=== PATIENT | female | born 1975 | race Caucasian/White ===

== ENCOUNTER → 2016-10-30 | Outpatient (CLI) | payer OTHER ==
[~2016-10-30] MED LIST: PRENTAB26 PO
[2016-10-30 10:46] LABS: PROGESTERONE < 0.21 ng/mL
== END | disposition home or self-care (01) ==
LOC: C.LAB1850 09:20
PROVIDERS: ATTEND Specialist
DX: Z31.89 Encounter for other procreative management (principal)

== ENCOUNTER → 2016-11-12 | Outpatient (CLI) | payer OTHER ==
[2016-11-12 08:50] LABS: PROGESTERONE < 0.21 ng/mL
== END | disposition home or self-care (01) ==
LOC: C.LAB1850 07:34
PROVIDERS: ATTEND Specialist
DX: Z31.89 Encounter for other procreative management (principal)

== ENCOUNTER → 2016-11-19 | Outpatient (CLI) | payer OTHER ==
[2016-11-19 11:01] LABS: URINE APPEARANCE CLEAR (CLEAR); URINE BILIRUBIN NEG (NEG); URINE COLOR YELLOW; URINE NITRITE POS (NEG); URINE SPECIFIC GRAVITY 1.021 (1.000-1.030); UROBILINOGEN NEG (NEG)
[2016-11-19 11:04] LABS: MANUAL MICROSCOPIC REQUIRED? NO; REVIEW REQ? NO
== END | disposition home or self-care (01) ==
LOC: C.LAB1850 09:05
PROVIDERS: ATTEND Obstetrics & Gynecology
DX: R39.9 Unspecified symptoms and signs involving the genitourinary system (principal)

== ENCOUNTER → 2016-11-28 | Outpatient (CLI) | payer OTHER ==
[2016-11-28 11:44] LABS: URINE APPEARANCE CLEAR (CLEAR); URINE BILIRUBIN NEG (NEG); URINE COLOR YELLOW; URINE EPITHELIAL CELL AUTO 20-30 /lpf (0-5); URINE NITRITE NEG (NEG); URINE PH 7.5 (4.5-7.5); URINE SPECIFIC GRAVITY 1.022 (1.000-1.030); UROBILINOGEN NEG (NEG)
[2016-11-28 11:49] LABS: MANUAL MICROSCOPIC REQUIRED? NO; REVIEW REQ? NO
== END | disposition home or self-care (01) ==
LOC: C.LAB1850 10:35
PROVIDERS: ATTEND Obstetrics & Gynecology
DX: R39.9 Unspecified symptoms and signs involving the genitourinary system (principal)

== ENCOUNTER → 2016-12-03 | Outpatient (CLI) | payer OTHER | END | disposition home or self-care (01) | LOC: C.LAB 06:42 | PROVIDERS: ATTEND Specialist | DX: Z31.89 Encounter for other procreative management (principal) ==

== ENCOUNTER → 2017-01-02 | Outpatient (CLI) | payer OTHER ==
[2017-01-02 16:32] LABS: BASO % 0.3 %; BASO ABS # 0.03 K/uL (0-0.2); COMPLETE YES; EOS % 1.6 %; HEMATOCRIT 38.4 % (37-47); IG% 0.3 %; LYMPH % 26.6 %; LYMPH ABS # 2.83 K/uL (1.2-3.4); MEAN CELL VOLUME 90.1 fL (80-100); MEAN CORPUSCULAR HEMOGLOBIN 31.9 pg (25-34); MEAN CORPUSCULAR HGB CONC 35.4 g/dl (32-36); NEUT % 63.2 %; PLATELET COUNT 288 K/uL (130-400); RED BLOOD COUNT 4.26 M/uL (4.2-5.4); WHITE BLOOD COUNT 10.62 K/uL (4.8-10.8)
[2017-01-02 18:24] LABS: URINE APPEARANCE TURBID (CLEAR); URINE BILIRUBIN NEG (NEG); URINE COLOR DK YELLOW; URINE EPITHELIAL CELL AUTO >30 /lpf (0-5); URINE NITRITE NEG (NEG); URINE SPECIFIC GRAVITY 1.023 (1.000-1.030); UROBILINOGEN NEG (NEG)
[2017-01-02 18:35] LABS: MANUAL MICROSCOPIC REQUIRED? NO; REVIEW REQ? YES
[2017-01-07 10:46] LABS: CHLAMYDIA TRACH RNA*** NOT DETECTED (NOT DETECTED); GC (NEIS GONORRHOEAE)RNA** NOT DETECTED (NOT DETECTED)
== END | disposition home or self-care (01) ==
LOC: C.LAB1850 15:22
PROVIDERS: ATTEND Obstetrics & Gynecology
DX: O09.519 Supervision of elderly primigravida, unspecified trimester (principal); O09.819 Supervision of pregnancy resulting from assisted reproductive technology, unspecified trimester

== ENCOUNTER → 2017-01-02 | Outpatient (CLI) | payer OTHER | END | disposition home or self-care (01) | LOC: C.PAPS 10:45 | PROVIDERS: ATTEND Obstetrics & Gynecology | DX: Z12.4 Encounter for screening for malignant neoplasm of cervix (principal) ==

== ENCOUNTER → 2017-02-17 | Outpatient (CLI) | payer OTHER ==
--- NOTE | 2017-02-17 16:53 | ECHOCARDIOGRAM REPORT ---
*NOTICE TO RECEIVING LIBERTARIAN AGENCY This information is strictly Confidential and protected under [place] law. [place] law prohibits you from making any further disclosure of this information unless further disclosure is expressly permitted by the written consent of the person to whom it pertains or is authorized by law. A general authorization for the release of medical or other information is not sufficient for this purpose. Hospital accepts no responsibility if the information is made available to any other person, INCLUDING THE PATIENT. Interpretation Summary * Name: KALI STEPHENSON Study Date: 02/17/2017 03:10 PM BP: 135/75 mmHg * Patient Location: [facility] HR: 68 * : 1975 (M/d/yyyy) Gender: Female Height: 69 in * Age: 41 yrs Ethnicity: [place] Weight: 220 lb * Ordering Physician: Maxwell Neal * Referring Physician: Mxawell Neal * Performed By: Kelly Galindo RDCS * * Reason For Study: SOB, PALPITATIONS * BSA: 2.2 m2 * History: SOB and Palpitations with exertion * This was essentially a normal study. * -- Conclusions -- * Left ventricular systolic function is normal. * Normal diastolic function Procedure Details * A complete two-dimensional transthoracic echocardiogram was performed (2D, M-mode, Doppler and color flow Doppler). Left Ventricle * The left ventricle is normal in size. * There is normal left ventricular wall thickness. * Ejection Fraction = 60-65%. * Left ventricular systolic function is normal. * Normal diastolic function Right Ventricle * The right ventricle is normal in size and function. Atria * The left atrial size is normal. * Right atrial size is normal. Mitral Valve * The mitral valve is grossly normal. * Significant mitral regurgitation is absent. Tricuspid Valve * The tricuspid valve is not well visualized, but is grossly normal. * There is trace tricuspid regurgitation. Aortic Valve * The aortic valve is normal in structure and function. * The aortic valve is trileaflet. * No hemodynamically significant valvular aortic stenosis. * There is no significant aortic regurgitation. Pericardium/Pleural * The pericardium appears normal. * There is no pericardial effusion. Great Vessels * Normal inferior vena cava diameter and respiratory variation suggests normal central venous pressure. MMode 2D Measurements and Calculations IVSd 0.89 cm IVSs 1.4 cm LVIDd 4.6 cm LVIDs 3.0 cm LVPWd 0.99 cm LVPWs 1.7 cm IVS/LVPW 0.90 FS 34.7 % EDV(Teich) 97.7 ml ESV(Teich) 35.3 ml EF(Teich) 63.9 % EDV(cubed) 97.8 ml ESV(cubed) 27.2 ml EF(cubed) 72.2 % % IVS thick 54.0 % % LVPW thick 66.7 % LV mass(C)d 147.3 grams LV mass(C)dI 68.5 grams/m\S\2 LV mass(C)s 161.6 grams LV mass(C)sI 75.1 grams/m\S\2 CO(Teich) 4.2 l/min CI(Teich) 2.0 l/min/m\S\2 SV(Teich) 62.5 ml SI(Teich) 29.0 ml/m\S\2 CO(cubed) 4.8 l/min CI(cubed) 2.2 l/min/m\S\2 SV(cubed) 70.6 ml SI(cubed) 32.8 ml/m\S\2 LA dimension 3.2 cm LVAd ap4 30.2 cm\S\2 LVLd ap4 7.8 cm EDV(MOD-sp4) 98.2 ml LVAs ap4 17.5 cm\S\2 LVLs ap4 6.7 cm ESV(MOD-sp4) 38.6 ml EF(MOD-sp4) 60.7 % LVAd ap2 27.6 cm\S\2 LVLd ap2 8.0 cm EDV(MOD-sp2) 80.0 ml LVAs ap2 14.8 cm\S\2 LVLs ap2 6.3 cm ESV(MOD-sp2) 29.9 ml EF(MOD-sp2) 62.6 % CO(MOD-sp4) 4.1 l/min CI(MOD-sp4) 1.9 l/min/m\S\2 SV(MOD-sp4) 59.6 ml SI(MOD-sp4) 27.7 ml/m\S\2 CO(MOD-sp2) 3.4 l/min CI(MOD-sp2) 1.6 l/min/m\S\2 SV(MOD-sp2) 50.1 ml SI(MOD-sp2) 23.3 ml/m\S\2 Doppler Measurements and Calculations MV E max michael 79.1 cm/sec MV A max michael 61.6 cm/sec MV E/A 1.3 MV dec time 0.18 sec Ao V2 max 124.2 cm/sec Ao max PG 6.2 mmHg Ao max PG (full) 2.2 mmHg LV V1 max PG 4.0 mmHg LV V1 max 100.1 cm/sec
== END | disposition home or self-care (01) ==
LOC: C.CPL 15:03
PROVIDERS: ATTEND Internal Medicine Cardiovascular Disease
DX: R06.02 Shortness of breath (principal); F41.9 Anxiety disorder, unspecified; R00.2 Palpitations; Z33.1 Pregnant state, incidental

== ENCOUNTER → 2017-02-27 | Outpatient (CLI) | payer OTHER ==
[2017-02-27 17:51] LABS: GTGD 50 Grams
== END | disposition home or self-care (01) ==
LOC: C.LAB1850 16:08
PROVIDERS: ATTEND Obstetrics & Gynecology
DX: O09.521 Supervision of elderly multigravida, first trimester (principal); Z3A.00 Weeks of gestation of pregnancy not specified

== ENCOUNTER → 2017-03-12 | Outpatient (CLI) | payer OTHER ==
[2017-03-12 10:27] LABS: THYROID STIMULATING HORMONE 0.455 uIu/ml (0.300-4.500)
== END | disposition home or self-care (01) ==
LOC: C.LAB 06:56
PROVIDERS: ATTEND Obstetrics & Gynecology
DX: R79.89 Other specified abnormal findings of blood chemistry (principal); O28.1 Abnormal biochemical finding on antenatal screening of mother; Z3A.00 Weeks of gestation of pregnancy not specified

== ENCOUNTER → 2017-05-15 | Outpatient (CLI) | payer OTHER ==
[2017-05-15 09:26] LABS: HEMATOCRIT 37.1 % (37-47)
[2017-05-15 09:30] LABS: URINE APPEARANCE CLEAR (CLEAR); URINE BILIRUBIN NEG (NEG); URINE COLOR YELLOW; URINE EPITHELIAL CELL AUTO >30 /lpf (0-5); URINE NITRITE NEG (NEG); URINE SPECIFIC GRAVITY 1.017 (1.000-1.030); UROBILINOGEN NEG (NEG)
[2017-05-15 09:31] LABS: MANUAL MICROSCOPIC REQUIRED? NO; REVIEW REQ? NO
== END | disposition home or self-care (01) ==
LOC: C.LAB 07:12
PROVIDERS: ATTEND Obstetrics & Gynecology
DX: O09.522 Supervision of elderly multigravida, second trimester (principal); Z3A.00 Weeks of gestation of pregnancy not specified

== ENCOUNTER → 2017-05-20 | Outpatient (CLI) | payer OTHER ==
[2017-05-20 17:47] LABS: THYROID STIMULATING HORMONE 0.385 uIu/ml (0.300-4.500)
[2017-05-22 16:54] LABS: MICROSOMAL AB <1 IU/ML (<9)
== END | disposition home or self-care (01) ==
LOC: C.LABBFT 10:41
PROVIDERS: ATTEND Internal Medicine Endocrinology, Diabetes & Metabolism
DX: R79.89 Other specified abnormal findings of blood chemistry (principal); E04.9 Nontoxic goiter, unspecified

== ENCOUNTER → 2017-07-16 | Outpatient (CLI) | payer OTHER | END | disposition home or self-care (01) | LOC: C.LABSPEC 17:57 | PROVIDERS: ATTEND Obstetrics & Gynecology | DX: O09.523 Supervision of elderly multigravida, third trimester (principal); Z3A.00 Weeks of gestation of pregnancy not specified ==

== ENCOUNTER 2017-08-06 15:48 | Inpatient (IN) | payer OTHER ==
[~2017-08-06] VITALS: Ht 175.3 cm; Wt 110.9 kg
[2017-08-06] MEDS ORDERED: LACTATED RINGER'S 1000ML 1,000 ML IV PRN (16:00)
[2017-08-06] MEDS ORDERED: LACTATED RINGER'S 1000ML 1,000 ML IV SCH (16:00)
[2017-08-06 16:24] LABS: HEMATOCRIT 34.7 % (37-47); MEAN CELL VOLUME 88.1 fL (80-100); MEAN CORPUSCULAR HEMOGLOBIN 30.7 pg (25-34); MEAN CORPUSCULAR HGB CONC 34.9 g/dl (32-36); MEAN PLATELET VOLUME 10.3 fL (7.4-10.4); PLATELET COUNT 204 K/uL (130-400); RED BLOOD COUNT 3.94 M/uL (4.2-5.4); WHITE BLOOD COUNT 9.93 K/uL (4.8-10.8)
[2017-08-06 17:57] VITALS: Ht 175.3 cm; Wt 110.9 kg
[2017-08-06] MEDS ORDERED: OXYTOCIN 30 UNITS/500ML NSS IV ONE (20:53)
[2017-08-06] MEDS ORDERED: METHYLERGONOVINE MALEATE 0.2 MG/ML AMP ONE (23:22)
[2017-08-07] MEDS ORDERED: OXYTOCIN 30 UNITS/500ML NSS IV PRN
[2017-08-07] MEDS ORDERED: BENZOCAINE 20% AER SPR 82.5 GM CAN EXT PRN
[2017-08-07] MEDS ORDERED: OXYCODONE/ACETAMINOPHEN 5-325 TAB PO PRN
[2017-08-07] MEDS ORDERED: SUPERCREAM 0.870 % 15GM JAR EXT PRN
[2017-08-07] MEDS ORDERED: LANOLIN OINT EXT PRN ×2
[2017-08-07] MEDS ORDERED: HYDROCORTISONE ACETATE 25 MG SUPP PR PRN
[2017-08-07] MEDS: IBUPROFEN 600 MG TAB PO PRN ×4 (00:19→20:28)
[2017-08-07 02:10] VITALS: BP 122/77; PULSE 108; TEMP 37
--- NOTE | 2017-08-07 02:30 | DELIVERY SUMMARY ---
DATE OF OPERATION: 08/06/2017 PREDELIVERY DIAGNOSES: 1. A 42-year-old G2, P1-0-0-1 at 39 weeks 4 days. 2. conceived by in-vitro fertilization with donor egg and donor sperm. 3. Advanced cervical dilation. 4. Anxiety. 5. Advanced maternal age. POSTDELIVERY DIAGNOSES: 1. A 42-year-old G2, P1-0-0-1 at 39 weeks 4 days. 2. conceived by in-vitro fertilization with donor egg and donor sperm. 3. Advanced cervical dilation. 4. Anxiety. 5. Advanced maternal age. PROCEDURE: Spontaneous vaginal delivery and repair of second-degree perineal laceration. FINDINGS: Viable male with Apgars 9 and 9. Weight pending. Please see nursery records. ESTIMATED BLOOD LOSS: 300 mL. DESCRIPTION OF DELIVERY: The patient progressed to complete without anesthesia and then began to push. She spontaneously vaginally delivered a viable male from cephalic presentation with the head in occiput-posterior position with a compound hand and a nuchal cord x1 that was delivered through. The baby was delivered, placed on mother's abdomen, vigorously stimulated. The cord was doubly clamped and cut, and the baby was handed off to the waiting pediatrics team. Subsequent Apgars were 9 and 9. Cord segment was obtained for cord gases. Cord blood was obtained. Placenta was then delivered spontaneously intact with 3-vessel cord. The uterus and vagina were cleared of all clots and debris. The cervix, vagina and perineum were inspected and a second-degree perineal laceration was noted and repaired in standard fashion with 0 Vicryl. Lidocaine was used and injected at the local area for anesthetic relief. Excellent hemostasis was noted. The bladder was drained with a red rubber catheter. Sponge, instrument and needle counts were correct at the conclusion of the delivery. The patient and the baby tolerated the delivery well and are recovering in stable and good condition in the room. I attest to the content of the Intraoperative Record and any orders documented therein. Any exception s are noted below.
[2017-08-07 04:15] VITALS: BP 120/75; PULSE 106; TEMP 36.7
--- NOTE | 2017-08-07 06:57 | Progress Note ---
Subjective Aug 07, 2017. Subjective conversation w/ patient, physical exam, chart review, lab review Ambulation: ambulating normally Voiding: no voiding problems Passing Gas: Yes Diet Tolerance: Regular Diet Lochia: Moderate Feeding Type: Breast Feeding Pain: Notes mild cramping Comment: Found pt resting comfortably, says delivery went well, and denies any acute concerns. Review of Systems Constitutional: No fever, No chills Respiratory: No cough, No shortness of breath Cardiac: + edema, No chest pain Abdomen: No nausea, No vomiting, No diarrhea Female : No dysuria Objective Vital Signs Date Time Temp Pulse Resp B/P (MAP) Pulse Ox O2 Delivery O2 Flow Rate FiO2 08/07/17 04:15 36.7 106 18 120/75 (90) Room Air 08/07/17 02:10 37.0 108 18 122/77 (92) Room Air 08/07/17 02:10 Room Air Physical Exam General Appearance: WELL-APPEARING, WD/WN, NO APPARENT DISTRESS Respiratory/Chest: lungs clear, normal breath sounds, no respiratory distress Cardiovascular: regular rate, rhythm, no murmur Abdomen: normal bowel sounds, non tender, soft Fundus: Firm, Non-Tender, Relation to Umbilicus (approx one down) Extremities: normal range of motion, non-tender, no calf tenderness, + pedal edema (2+ bilaterally) Laboratory Results Last 24 Hours Test 08/06/17 16:10 08/07/17 06:38 White Blood Count 9.93 K/uL Red Blood Count 3.94 M/uL Hemoglobin 12.1 g/dL Hematocrit 34.7 % Mean Corpuscular Volume 88.1 fL Mean Corpuscular Hemoglobin 30.7 pg Mean Corpuscular Hemoglobin Concent 34.9 g/dl RDW Standard Deviation 42.9 fL RDW Coefficient of Variation 13.3 % Platelet Count 204 K/uL Mean Platelet Volume 10.3 fL Assessment and Plan Post- Day#: 1 Continue Routine Care: 42F , now PPD #1 (delivered around ~2330 on 12Jul). - Blood type B positive. GBS negative. Rubella immune. - Vital signs reviewed and stable. - Pain controlled with motrin. - Bilateral equal leg swelling but no tenderness on calf palpation. Encourage ambulation. - Encourage breast feeding. - Hemoglobin pre-delivery 12.1, post-delivery pending this am. Bleeding has improved. Continue to monitor clinically. - Continue routine post-vaginal delivery care. - Pt agreed with above plan, all current questions answered. Collin Harper MD, PGY1 Purchasing Manager/Sales Physician Supervision Note: I was present with Dr. Harper during the history and exam. I discussed the case with the resident and agree with the findings and plan as documented in the note. Any exceptions or clarifications are listed here: PPD#1 doing well. Continue routine PP care. Documented By: Dang Mclean Resident Tracking Resident Involvement: Resident Care Provided Care Provided: OB Delivery (OB rounds)
[2017-08-07 07:05] LABS: HEMATOCRIT 29.7 % (37-47)
[2017-08-07] MEDS: DOCUSATE SODIUM 100 MG CAP PO SCH ×2 (07:17→20:28)
[2017-08-07 07:27] VITALS: BP 137/89; PULSE 96; TEMP 36.7; O2SAT 97
[2017-08-07 13:11] VITALS: BP 120/70; PULSE 97; TEMP 36.7
[2017-08-07 15:30] VITALS: BP 132/79; PULSE 85; TEMP 36.6
[2017-08-07 19:55] VITALS: BP 120/77; PULSE 98; TEMP 36.8
[2017-08-07] MEDS ORDERED: BISACODYL 5 MG TABEC PO SCH (20:00)
[2017-08-08 00:25] VITALS: BP 121/82; PULSE 81; TEMP 36.6
[2017-08-08] MEDS: IBUPROFEN 600 MG TAB PO PRN ×2 (06:28→11:35)
[2017-08-08] MEDS ORDERED: BISACODYL 10 MG SUPP PR PRN (07:00)
--- NOTE | 2017-08-08 07:14 | Progress Note ---
Subjective Aug 08, 2017. Subjective conversation w/ patient, physical exam, chart review, lab review Ambulation: ambulating normally Voiding: no voiding problems Passing Gas: Yes Diet Tolerance: Regular Diet Lochia: Small Feeding Type: Breast Feeding Pain: Notes minimal low abd cramping Comment: Found pt initially walking to nursery, later resting comfortably in bed, denies any acute concerns. Review of Systems Constitutional: No fever, No chills Respiratory: No cough, No shortness of breath Cardiac: + edema, No chest pain Abdomen: No nausea, No vomiting, No diarrhea Female : No dysuria Objective Vital Signs Date Time Temp Pulse Resp B/P (MAP) Pulse Ox O2 Delivery O2 Flow Rate FiO2 08/08/17 00:25 Room Air 08/08/17 00:25 36.6 81 18 121/82 (95) Room Air 08/07/17 19:55 36.8 98 18 120/77 (91) Room Air 08/07/17 15:30 36.6 85 16 132/79 (96) Room Air 08/07/17 15:30 Room Air 08/07/17 13:11 36.7 97 16 120/70 (87) Room Air 08/07/17 08:00 Room Air 08/07/17 07:27 36.7 96 20 137/89 (105) 97 Room Air Physical Exam General Appearance: WELL-APPEARING, WD/WN, NO APPARENT DISTRESS Respiratory/Chest: lungs clear, normal breath sounds, no respiratory distress Cardiovascular: regular rate, rhythm, no murmur Abdomen: normal bowel sounds, non tender, soft Fundus: Firm, Non-Tender, Relation to Umbilicus Extremities: normal range of motion, non-tender, no calf tenderness, + pedal edema (2+ bilaterally), + pertinent finding (Faint macular erythema over right lateral rider, improved from yesterday. Non-ttp, no warmth. ) Assessment and Plan Post- Day#: 2 Continue Routine Care: 42F s/p , now PPD #2. - Blood type B positive. GBS negative. Rubella immune. - Vital signs reviewed and stable. - Pain controlled with motrin. - Equal bilateral lower extremity swelling. No tenderness on calf palpation. Encourage ambulation. - Suspected contact dermatitis rash on right leg, improving. F/u with PCM for resolution. - Encourage breast feeding. - Hemoglobin pre-delivery 12.1, post-delivery 10.3. Bleeding improving. Continue to monitor clinically. - Continue routine post-vaginal delivery care. - Pt counseled on discharge instructions. - Pt agreed with above plan, all current questions answered. Collin Harper MD, PGY1 Rib Sawyer Physician Supervision Note: I was present with Dr. Harper during the history and exam. I discussed the case with the resident and agree with the findings and plan as documented in the note. Any exceptions or clarifications are listed here: doing well, ready for discharge. discussed leg rash, if not improved see pcp. no calf tenderness, discussed s/sx dvt/pe. call with any concerns. f/u 6wks pp, instructions reviewed. Documented By: Holli Tellez Resident Tracking Resident Involvement: Resident Care Provided Care Provided: OB Delivery (OB rounds)
--- NOTE | 2017-08-08 07:20 | Discharge Instructions ---
Discharge Instructions Date of Service Aug 08, 2017. Admission Reason for Admission: LABOR Discharge Discharge Diagnosis / Problem: Recovery from vaginal delivery Discharge Goals Goal(s): Routine recovery after delivery Medications Continue Dispensed Medications: supercream, dermaplast, tucks, lansinoh Activity Recommendations Activity Limitations: per Instructions/Follow-up section . Instructions / Follow-Up Instructions / Follow-Up ACTIVITY RECOMMENDATIONS: * Gradual return to full activity over the next 2-3 weeks. * No lifting - nothing heavier than baby over the next 2-3 weeks. * Do not engage in vigorous exercise, sexual activity or sports until cleared by your physician. * Do not drive or operate any motorized equipment until cleared by your physician. * You may shower/bathe daily. MEDICATIONS: For discomfort or pain, you may use Acetaminophen (Tylenol), Ibuprofen (Advil), or Naproxen (Aleve) following the package directions. For constipation you may use Colace following the package directions. BREAST CARE: If you are not breast feeding: * Wear a supportive bra 24 hours a day for one to two weeks. * Avoid stimulating your breasts and nipples as much as possible during the first few weeks after delivery. * When taking a shower, have the warm water hit your back, not breasts. * When your breasts feel full, apply ice packs. Usually three to four times a day helps ease the discomfort. * Take a mild pain medication (Tylenol / Motrin) when you are uncomfortable. If breast feeding: * Use breast milk to lubricate nipples. Lansinoh cream may be used for sore nipples. You do not need to remove cream prior to breast feeding. If using a different brand of cream, check the label for directions regarding removal of cream prior to nursing. * Wear a supportive bra. * If having problems with breasts or breast feeding, call a workforce consultant or your health care provider. EPISIOTOMY CARE: After delivery, if you have an episiotomy (stitches), the following steps will ease discomfort and aid healing. * For the first 24 hours after delivery, place ice packs next to your episiotomy to help reduce swelling. * After the first 24 hour-period, sitz baths, either portable or in the tub, are suggested. A shower with a shower arm sprayed over the episiotomy may be comforting. * Annie care should be done after each voiding and bowel movement. Squirt warm water from a plastic bottle over the perineum (region of the body between the anus and urinary opening) and pat dry. * Use Dermoplast to ease discomfort. Shake container. Galien directly over the episiotomy. Place a Tucks on a clean sanitary pad next to your episiotomy. SPECIAL CARE INSTRUCTIONS: When you are discharged from the hospital, it is important for you to follow the instructions listed below: * During the first week at home, you should be able to care for yourself and your baby. In addition, the usual light household activities are encouraged. * Limit your activities to the way you feel. Do not try to clean the house or move furniture. Be sensible. * If you actively engage in sports and have done so up until the time of your delivery, you may resume these activities as soon as you feel able. This may take up to one month or even longer. Use good judgment. * Continue to take your vitamins for at least six weeks after the of your baby. * Your diet need not be limited unless you were on a special diet before your delivery. Breast-feeding mothers need around 2500 calories per day and at least 64-80 ounces of fluid per day (8 to 10 glasses). * You should eat foods from the four major food groups. Crash diets or fad diets are to be avoided. Eating lean meats, fresh fruits and vegetables, low-fat dairy products, high fiber foods and a regular exercise program, will help you get back to your pre- weight without putting your health at risk. * Constipation is sometimes a problem after delivery. Take a mild laxative as needed. If breast feeding, Milk of Magnesia is acceptable to use. You may use a suppository or Fleets enema if no episiotomy. * A daily shower or tub bath is suggested. Be sure to thoroughly and gently dry the perineum. * A bloody vaginal discharge will usually continue until around four weeks post . A small amount of bleeding may continue for as long as six weeks. Vaginal discharge changes from the bright red bleeding after delivery to pink then brownish and finally yellowish-pink before becoming white and disappearing. * Bleeding may increase with activity. Your first period may come in 4-8 weeks. If you are breast feeding, your period may be delayed even longer. * [place] (sex) can begin whenever both you and your partner feel comfortable and do not have any form of genital infection. It is recommended that you wait at least six weeks for internal and external healing to occur. If you have questions, please talk to your health care practitioner. A condom should be used to prevent infection and . * Foreplay, gentle intercourse and lubrication is very important the first several times to prevent pain. A water-based lubricant such as K-Y jelly or Astroglide may be used. * If you have RH negative blood and your baby is RH positive, you will receive RHOGAM by injection prior to discharge. The nurse will give you a card to keep with you that has the date and place that you received RHOGAM after delivery. * During your care, you had a Rubella screen done to check for the presence of rubella antibodies in your blood. If your test was negative, you will receive a Rubella vaccine prior to discharge. This vaccine may cause a fever, soreness at the injection site and flu-like symptoms. If these symptoms persist, notify your health care practitioner. is not advised for one month after a Rubella vaccine. * Verbalizes understanding of car seat law as reviewed with patient nursing. * Car Seat hand-out given and reviewed with patient by nursing. * Shaken baby information reviewed with patient by nursing. Call you doctor if: * Heavy bleeding (saturating several pads an hour) or passing clots the size of your fist. * A fever >101 degrees F (38.3 degrees C) on two occasions four hours apart and /or chills. * Unusual pain in the pelvic or vaginal areas. * "Baby Blues" lasting longer than two weeks. If you have any questions or concerns, call your health care practitioner at . FOLLOW UP VISIT: * Please call the office at to schedule a 6 week examination. It is important you keep this appointment. It is important for you to make arrangements for either yearly or twice yearly check-ups thereafter. Current Hospital Diet Patient's current hospital diet: Regular OB Diet Discharge Diet Recommended Diet: Regular OB Diet Pending Studies Studies pending at discharge: no Medical Emergencies . Who to Call and When: Medical Emergencies: If at any time you feel your situation is an emergency, please call 911 immediately. . Non-Emergent Contact Non-Emergency issues call your: Rag Cutting Machine Operator . . "Provider Documentation" section prepared by Collin Harper. . VTE Core Measure Inpt VTE Proph given/why not?: Treatment not indicated
[2017-08-08 07:51] VITALS: BP 117/81; PULSE 87; TEMP 36.6; O2SAT 97
[2017-08-08] MEDS: DOCUSATE SODIUM 100 MG CAP PO SCH (08:43)
[2017-08-08 11:17] VITALS: BP_DIAS 81; PULSE 87; TEMP 36.6
== END 2017-08-08 13:20 | disposition home or self-care (01) | DRG 775 ==
LOC: C.LD 15:48 → C.OBG 08-07 02:03
PROVIDERS: ADMIT Obstetrics & Gynecology; ATTEND Obstetrics & Gynecology
PROC: 0KQM0ZZ Repair Perineum Muscle, Open Approach (ICD-10-PCS; principal; 2017-08-06)
PROC: 10E0XZZ Delivery of Products of Conception, External Approach (ICD-10-PCS; principal; 2017-08-06)
DX: O70.1 Second degree perineal laceration during delivery (principal); O09.813 Supervision of pregnancy resulting from assisted reproductive technology, third trimester; O09.523 Supervision of elderly multigravida, third trimester; O69.81X0 Labor and delivery complicated by cord around neck, without compression, not applicable or unspecified; Z3A.39 39 weeks gestation of pregnancy; Z37.0 Single live birth